=== PATIENT | female | born 1980 | race Caucasian/White ===

== ENCOUNTER 2020-02-15 11:20 | Inpatient (IN) | payer OTHER ==
[2020-02-15] MEDS ORDERED: CITRIC ACID/SODIUM CITRATE 30 ML UNIT-DOSE CUP PO ONE (12:13)
[2020-02-15] MEDS ORDERED: ONDANSETRON 4 MG/2 ML VIAL IVPUSH PRN (12:14)
[2020-02-15] MEDS ORDERED: morphine SULFATE/PF 0.5 MG/ML (2cc Syringe - QUVA) EP ONE (12:14)
[2020-02-15] MEDS ORDERED: ELECTROLYTE-148 SOLN 1,000 ML IV SCH ×2 (12:15→12:45)
[2020-02-15] MEDS ORDERED: ePHEDrine SULFATE 50 MG/1 ML AMPULE ONE (12:50)
[2020-02-15] MEDS ORDERED: ACETAMINOPHEN 325 MG TABLET (FP) PO PRN (13:57)
[2020-02-15] MEDS ORDERED: IBUPROFEN 800 MG/8 ML IJ IVPB PRN (13:57)
[2020-02-15] MEDS ORDERED: OXYTOCIN 20 UNITS in 0.9% NS 20 UNIT/1,000 ML INFUS.BAG IV ONE ×2 (14:16→17:42)
[2020-02-15] MEDS: OXYTOCIN 20 UNITS in 0.9% NS 20 UNIT/1,000 ML INFUS.BAG IV SCH (14:20)
[2020-02-15 14:54] VITALS: BMI 31.1
[2020-02-16] MEDS: OXYTOCIN 20 UNITS in 0.9% NS 20 UNIT/1,000 ML INFUS.BAG IV SCH ×2 (01:49→20:26)
[2020-02-16 08:24] LABS: BASO % 0.7 % (0-2.0); EOS % 1.4 % (0-4.5); HEMATOCRIT 26.9 % (32.4-45.2); HEMOGLOBIN 8.6 GM/dL (10.7-15.3); LYMPH % 23.4 % (8-40); MCH 27.4 pg (25.7-33.7); MEAN CELL VOLUME 85.6 fl (80-96); MEAN PLT VOLUME 9.8 fl (7.5-11.1); MONO % 6.2 % (3.8-10.2); NEUT % 68.3 % (42.8-82.8); PLATELET COUNT 171 K/MM3 (134-434); RBC 3.14 M/mm3 (3.60-5.2); RDW 15.8 % (11.6-15.6); WHITE BLOOD COUNT 7.4 K/mm3 (4.0-10.0)
[2020-02-16] MEDS: SIMETHICONE 80 MG TAB.CHEW (FP) PO PRN ×3 (11:10→22:01)
[2020-02-16] MEDS: IBUPROFEN 600 MG TABLET (FP) PO PRN ×2 (11:10→21:11)
[2020-02-16] MEDS: oxyCODONE HCL 5 MG TABLET PO PRN ×2 (11:11→21:12)
[2020-02-16] MEDS ORDERED: BISACODYL 10 MG SUPP.RECT RC PRN (13:58)
[2020-02-16] MEDS ORDERED: diphenhydrAMINE HCL 25 MG CAPSULE (FP) PO PRN (21:18)
[2020-02-17] MEDS: oxyCODONE HCL 5 MG TABLET PO PRN (06:08)
[2020-02-17] MEDS: SIMETHICONE 80 MG TAB.CHEW (FP) PO PRN (06:08)
[2020-02-17] MEDS: IBUPROFEN 600 MG TABLET (FP) PO PRN ×2 (06:08→13:41)
[2020-02-17 09:02] VITALS: BP 127/75; PULSE 77; TEMP 97.9
== END 2020-02-17 14:36 | disposition home or self-care (01) | DRG 540 ==
LOC: EDBD → JLDR 11:20 → J3W 17:20
PROVIDERS: ADMIT Obstetrics & Gynecology; ATTEND Obstetrics & Gynecology
PROC: 10D00Z1 Extraction of Products of Conception, Low, Open Approach (ICD-10-PCS; principal; 2020-02-15)
DX: O34.219 Maternal care for unspecified type scar from previous cesarean delivery (principal); Z3A.39 39 weeks gestation of pregnancy; Z37.0 Single live birth
CPT/HCPCS: 36415; 85025; 86850; 86900; 86901; 86922; 88307-TC